=== PATIENT | female | born 1995 | race Caucasian/White ===

== ENCOUNTER 2021-09-01 11:37 | Emergency (ER) | payer BC, SELFPAY ==
--- OUTSIDE RECORDS SUMMARY | 2021-09-01 11:39 | XMS REPORT | Continuity of Care Document ---
:1995 Author Organization [facility] t Address [address] [place] [address] Care Team Providers Name Role Phone Néstor Attending Clinician Unavailable Jericho Attending Clinician Unavailable SAMANTHA SCHAEFER Attending Clinician Unavailable Jericho Admitting Clinician Unavailable Payers Payer Name Policy Type Policy Number Effective Date Expiration Date S ource Problems This patient has no known problems. Allergies, Adverse Reactions, Alerts Allergy Allergy Status Severity Reaction(s) Onset Inactive Treating Comm ents Source Name Type Date Date Clinician [place] DA Active [place] [facility] [place] vancom[facility] DA Active PR [facility] [place] Penic[place] DA Active [place] RASH [facility] [place] [facility] Active PR ITCHING [facility] in 02-22 [facility] [place] PENICILL DRUG Active Rash 2014-08 Univers IN [facility] 004 ity of 00:00: [place] [address] Medical Branch Medications This patient has no known medications. Procedures Procedure Date / Time Performed Performing Clinician Turner locke [id number] 2019-08-28 00:00:00 [facility] [id number] 2019-08-28 00:00:00 [facility]01 [facility] Encounters Start End Encounter Admission Attending Care Care Encounter Source Date/Time Date/Time Type Type Clinicians Facility Department ID 2021-08-28 Outpatient TALYA Palm [facility] [id number] [address] 14:23:35 [place] [id number] [facility] 2021-08-28 Outpatient Néstor STSEB [facility] [id number] 14:18:47 [place] [id number] [facility] 2019-08-28 Inpatient Echavarria, [facility] SHUBHAM [id number] [facility] 05:52:[id number] [place] [address] 2021-07-08 2021-07-08 ambulatory [facility] [id number] [facility] 2021-07-02 2021-07-02 ambulatory [facility] [id number] [facility] 2019-01-09 2019-01-09 Emergency X Miryam SCHAEFER [facility] ERT [id number] [facility] 17:15:39 20:16:00 [facility] Results Test Description Test Time Test Comments Results Result Comments Source HGB HCT 2019-08-29 05:25:00 Test Item Value Reference Range Interpretation Comme nts HEMOGLOBIN (test code = HGB) 9.7 g/dL 10.7-13.9 L HEMATOCRIT (test code = HCT) 30.4 % 32.1-42.1 L AG HEPATITIS B [id number] 09:37:00 Test Item Value Reference Range Interpretation Comments AG HEPATITIS B SURFACE (test code NONREACTIVE NONREACTIVE = HBSAG) IS CONSENT FORM SIGNED FOR HIV TESTING? YAB HEPATITIS C [id number] 09:37:00 Test Item Value Reference Range Interpretation Comments AB HEPATITIS C (test code = NONREACTIVE NONREACTIVE HCVAB) SIGNAL TO CUTOFF (test code = 0.16 <0.80 N CUTOFF) IS CONSENT FORM SIGNED FOR HIV TESTING? YAB [id number] 09:37:00 Test Item Value Reference Range Interpretation Comments AB TREPONEMA (test code = TREPAB) NONREACTIVE NONREACTIVE IS CONSENT FORM SIGNED FOR HIV TESTING? YAB HIV 1 [id number] 09:37:00 Test Item Value Reference Range Interpretation Comments AB HIV 1 2 (test NONREACTIVE NONREACTIVE Done by Jhoan Lazo code = [id number]) 4th Gen HIV Ag/Ab Combo Screen IS CONSENT FORM SIGNED FOR HIV TESTING? YCBC W/AUTO [id number] 07:22:00 Test Item Value Reference Range Interpretation Comments WHITE BLOOD CELL (test code = WBC) 12.3 K/mm3 6.6-12.1 H RED BLOOD CELL (test code = RBC) 3.92 M/mm3 3.45-5.01 N HEMOGLOBIN (test code = HGB) 11.2 g/dL 10.7-13.9 N HEMATOCRIT (test code = HCT) 34.3 % 32.1-42.1 N MEAN CELL VOLUME (test code = MCV) 88 fL 84.1-94.8 N MEAN CELL HGB (test code = MCH) 28.6 pg 27-35 N MEAN CELL HGB CONCETRATION (test 32.7 gm/dL 32.2-34.1 N code = MCHC) RED CELL DISTRIBUTION WIDTH (test 13.8 % 12.4-16.5 N code = RDW) PLATELET COUNT (test code = PLT) 291 K/mm3 133-385 N MEAN PLATELET VOLUME (test code = 11.0 fl 9.1-12.7 N MPV) NEUTROPHIL % (test code = NT%) 71.6 % 56.5-79.4 N LYMPHOCYTE % (test code = LY%) 19.8 % 14.3-34.3 N MONOCYTE % (test code = MO%) 6.7 % 5.1-10.4 N EOSINOPHIL % (test code = EO%) 0.9 % 0.1-3.0 N BASOPHIL % (test code = BA%) 0.3 % 0.1-1.0 N NEUTROPHIL # (test code = NT#) 8.8 K/mm3 LYMPHOCYTE # (test code = LY#) 2.4 K/mm3 MONOCYTE # (test code = MO#) 0.8 K/mm3 EOSINOPHIL # (test code = EO#) 0.11 K/mm3 BASOPHIL # (test code = BA#) 0.0 K/mm3 RBC MORPHOLOGY REQUIRED (test code NORMAL NORMAL = RBCM) PLATELET MORPHOLOGY REQUIRED (test NORMAL NORMAL code = PLTMR) URINALYSIS [id number] 15:26:00 Test Item Value Reference Range Interpretation Comments UA COLOR (test code = COLU) YELLOW YELLOW UA APPEARANCE (test code = CLEAR CLEAR APPU) UA GLUCOSE DIPSTICK (test code 3+ NEG A = DGLUU) UA BILIRUBIN DIPSTICK (test NEGATIVE NEG code = BILU) UA KETONE DIPSTICK (test code TRACE NEG A = KETU) UA SPECIFIC GRAVITY (test code 1.016 1.001-1.035 N = SGU) UA BLOOD DIPSTICK (test code = NEG NEG TEE) UA PH DIPSTICK (test code = 6.0 5-9 BECKY) UA PROTEIN DIPSTICK (test code NEGATIVE NEG = PROU) UA UROBILINIOGEN DIPSTICK NEGATIVE mg/dL NEG (test code = URO) UA NITRITE DIPSTICK (test code NEG NEG = DOT) UA LEUKOCYTE ESTERASE DIPSTICK NEG NEG (test code = LEUU) UA WBC (test code = WBCU) 0-2 #/hpf NONE SEEN UA EPITHELIAL CELLS (test code RARE #/HPF RARE-FEW = EPIU) UA BACTERIA (test code = BACU) RARE /HPF RARE-FEW UA MUCUS (test code = MUCU) RARE NONE SEEN - US PREG UT [id number] 09:50:00 Patient Name: LISA LENZ Unit No: [id number] EXAMS: CPT CODE: [id number] US PREG UT TRANSVAGINAL [address] [facility] [address], [place] [address] OBSTETRICAL ULTRASOUND REPORT Pat. Name: LISA LENZ Pat. No: [id number] Study Date: 07/05/2019 8:43am , Age: 01 1995, 22 Pregnancies: 3, Para 0 LMP: Unknown GA by 1st: 30w6d GA by US: 32w3d GA Selected: 30w6d (From Known E) YARA: 09/07/2019 Referring MD: Sandra Echavarria Marine Pipefitter: Luis Fernando Rausch RDMS CPT4: USPRUTTRVG Admitting MD: Sandra Echavarria Hist/Ind: PTL Weight OB F/U Scan #3 MEASURE MENTS AGE GROWTH EVALUATION Measurement GA Range Srce %for GA Ratios ----- ---- ------- BPD 8.2 cm 33w2d (63r6g-57h6l) Hadl BPD 87% FL/BPD 0.77 (0.71 - 0.87) HC 30.4 cm 33w2d (80a9b-76t4j) Hadl HC 87% FL/AC 0.23 (0.20 - 0.24) APD 8.2 cm APD HC/AC 1.10 (0.97 - 1.16) TAD 9.3 cm TAD CI 0.79 (0.70 - 0.86) AC 27.5 cm 31w4d (75d1z-68z6k) HadlAC 62% FL 6.3 cm 32w2d (83x9c-97w4v) Hadl FL 72% HL 5.2 cm 30w4d (29x5a-56x7d) Dharmesh HL 45%GA for sonogram 32w3d (78c5s-23m9q) Weight Estimate: based on (BPD,HC,AC,FL) Bishnu Shepard ght: 1931 gm (8532-6556) Hadlo : 4lbs, 4oz Normal: 1606 gm (0908-4706) Brenn Wt% 70% for 30.9 wks Cervical Length: 3.1 cm Heart Rate: 126 bpm Amniotic Fluid Index: 12.8cm (08.8-23.7) Q1: 3.5cm Q2: 2.5cm Q3: 2.3cm Q4: 4.5cm CLINICAL SUMMARY Type of Gestation: Botello Intrauterine in vertex presentation. size is appropriate for gestational age. growth: Consistent with normal growth motion and organs seen: somatic activity observed body and limb movements seen Regular cardiac rhythm observed Placental location: [facility] NAME: LISA LENZ Radiology Department PHYS: KENISHA.Reji Sandra Echavarria MD [address] : 1995 AGE: 23 SEX: F [place], [place] [address] LOC: [place].3046 A PHONE #: [phone] EXAM DATE: 07/05/2019 STATUS: ADM IN FAX #: [phone] RAD NO: Page 1 Signed Report (CONTINUED) Patient Name: LISA LENZ Unit No: [id number] EXAMS: CPT CODE: [id number] [facility] TRANSVAGINAL [address] <Continued> Posterior Placental maturity : Grade 2There is no evidence of placenta previa. Amniotic fluid volume is normal. Uterus and adnexa: No significant abnormality is seen. Thank you for allowing us to participate in the care of this patient. Melani Macedo M.D. Electronic Signature 07/05/2019 09:50am at 0950 Reported and signed by: Sabrina Macedo MD CC: Sandra Echavarria MD Technologist: Luis Fernando Rausch, KELLI Probe: [id number] Trnscrbd D/ (0950) Luis A Orig Print D/T: S: 07/06/2019 (1519) [facility] NAME: LISA LENZ Radiology Department PHYS: KENISHA. Víctor Sandra Echavarria MD [address] : 1995 AGE: 23 SEX: [place] [address] LOC: Ana Luisa6 A PHONE#: [phone] EXAM DATE: 07/05/2019 STATUS: ADM IN FAX #: [phone] RAD NO: Page 2 Signed Report Patient Name: LISA LENZ Unit No: [id number] EXAMS: CPT CODE: [id number] US PREG UT TRANSVAGINAL [address] <Continued> [facility] NAME: LISA LENZ Radiology Department PHYS: KENISHAELIU Renee Sandra Echavarria MD [address] : 1995 AGE: 23 SEX: F [place] [address] LOC: Eleni3046 A PHONE #: [phone] EXAM DATE: 07/05/2019 STATUS: ADM IN FAX #: [phone] RAD NO:Page 3 Signed Report- US FLW [id number] 09:50:00 Patient Name: LISA LENZ Unit No: [id number] EXAMS: [place]: [id number] [address] [facility] [address], [place] [address] OBSTETRICAL ULTRASOUND REPORT Pat. Name: LISA LENZ Pat. No: [id number] Study Date: 07/05/2019 8:43am , Age: 01 1995, 22 Pregnancies: 3, Para 0 LMP: Unknown GA by 1st: 30w6d GA by US: 32w3d GA Selected: 30w6d (From Known E) YARA: 09/07/2019 Referring MD: Sandra Echavarria Marine Pipefitter: Luis Fernando Rausch RDMS CPT4: USPREGFU Admitting MD: Sandra Echavarria Hist/Ind: PTL Weight OB F/U Scan #3 MEASUREMENTS AGE GROWTH EVALUATION Measurement GA Range Srce %for GA Ratios ----- ---- ------- BPD 8.2 cm 33w2d (54t9r-95p2m) Hadl BPD 87% FL/BPD 0.77 (0.71 - 0.87) HC 30.4 cm 33w2d (99z8c-36s3w) Hadl HC 87% FL/AC 0.23 (0.20 - 0.24) APD 8.2 cm APD HC/AC 1.10 (0.97 - 1.16) TAD 9.3 cm TAD CI 0.79 (0.70 - 0.86) AC 27.5 cm 31w4d (10o7z-83p1r) Hadl AC 62% FL 6.3 cm 32w2d (85p6z-61x7v) Hadl FL 72% HL 5.2 cm 30w4d (50p2p-15d5n) Dharmesh HL 45% GA for sonogram 32w3d (52r1t-78l6j) Weight Estimate: based on (BPD,HC,AC,FL) Hadlock Weight: 1931 gm (9824-8363) Hadlo : 4lbs, 4oz Normal: 1606 gm (1429-2989) Brenn Wt% 70% for 30.9 wks Cervical Length: 3.1 cm Heart Rate: 126 bpm Amniotic Fluid Index: 12.8cm(08.8-23.7) Q1: 3.5cm Q2: 2.5cm Q3: 2.3cm Q4: 4.5cm CLINICAL SUMMARY Type of Gestation: Botello Intrauterine in vertex presentation. size is appropriate for gestational age. growth: Consistent with normal growth motion and organs seen: somatic activity observed body and limb movements seen Regular cardiac rhythm observed Placental location: [facility] NAME: LISA LENZ Radiology Department PHYS: Carlos A Walker MD [address] : 1995 AGE: 23 SEX: [place] [address] LOC: Ana Luisa6 Trevor PHONE #: [phone] EXAM DATE: 07/05/2019 STATUS: ADM IN FAX #: [phone] RAD NO: Page 1 Signed Report(CONTINUED) Patient Name: LISA LENZ Unit No: [id number] EXAMS: CPT CODE: [id number] [place] [address] <Continued> Posterior Placental maturity : Grade 2 There is no evidence of placenta previa. Amniotic fluid volume is normal. Uterus and adnexa: No significant abnormality is seen. Thank you for allowing us to participate in the care of this patient. Melani Macedo M.D. Electronic Signature 07/05/2019 09:50am at 0950 Reported and signed by: Sabrina Macedo MD CC: Carlos A Rausch MD; Irais Echavarria MD Technologist: Luis Fernando Rausch RDMS Probe: Trnscrbd D/ (949) Luis A Valderrama Print D/T: S: 07/05/2019 (50) [facility] NAME: DELFINLISA Radiology Department PHYS: Carlos A Walker MD [address] : 1995 AGE:23 SEX: [place] [address] LOC: Eleni3046 A PHONE #: [phone] EXAM DATE: 07/05/2019 STATUS: ADM IN FAX #: [phone] RAD NO: Page 2 Signed Report PatientName: LISA LENZ Unit No: [id number] EXAMS: CPT CODE: [id number] [place] [address] <Continued> [facility] NAME: LISA LENZ Radiology Department PHYS: Carlos A Walker MD [address] : 1995 AGE: 23 SEX: F [place], [place] [address] LOC: Eleni3046 A PHONE #: [phone] EXAM DATE: 07/05/2019 STATUS: ADM IN FAX #: [phone] RAD NO: Page 3 Signed ReportCBC W/AUTO DIFF 2019-07-04 22:50:00 Test Item Value Reference Range Interpretation Comments WHITE BLOOD CELL (test code = WBC) 12.7 K/mm3 6.6-12.1 H RED BLOOD CELL (test code = RBC) 3.57 M/mm3 3.45-5.01 N HEMOGLOBIN (test code = HGB) 10.8 g/dL 10.7-13.9 N HEMATOCRIT (test code = HCT) 33.1 % 32.1-42.1 N MEAN CELL VOLUME (test code = MCV) 93 fL 84.1-94.8 N MEAN CELL HGB (test code = MCH) 30.3 pg 27-35 N MEAN CELL HGB CONCETRATION (test 32.6 gm/dL 32.2-34.1 N code = MCHC) RED CELL DISTRIBUTION WIDTH (test 12.8 % 12.4-16.5 N code = RDW) PLATELET COUNT (test code = PLT) 281 K/mm3 133-385 N IMMATURE PLATELET FRACTION (test 0.0 % 0.0-10.8 N code = IPF) MEAN PLATELET VOLUME (test code = 10.4 fl 9.1-12.7 N MPV) NEUTROPHIL % (test code = NT%) 70.2 % 56.5-79.4 N LYMPHOCYTE % (test code = LY%) 22.1 % 14.3-34.3 N MONOCYTE % (test code = MO%) 6.0 % 5.1-10.4 N EOSINOPHIL % (test code = EO%) 0.9 % 0.1-3.0 N BASOPHIL % (test code = BA%) 0.2 % 0.1-1.0 N NEUTROPHIL # (test code = NT#) 8.9 K/mm3 LYMPHOCYTE # (test code = LY#) 2.8 K/mm3 MONOCYTE # (test code = MO#) 0.8 K/mm3 EOSINOPHIL # (test code = EO#) 0.12 K/mm3 BASOPHIL # (test code = BA#) 0.0 K/mm3 RBC MORPHOLOGY REQUIRED (test code NORMAL NORMAL = RBCM) PLATELET MORPHOLOGY REQUIRED (test NORMAL NORMAL code = PLTMR) PARVO B19 DNA [id number] 08:55:00 Test Item Value Reference Range Interpretation Comments PARVO B19 DNA Negative Negative No Parvovirus B19 DNA PCR (test detected.This t est was developed code = and its perform ance [id number] characteristic sdetermined by R) [facility]. It has not been clearedor approved by the U.S. Food and D rug Administration. TheFDA has determined that such clearance or approval is notnecessary. This test is us ed for clinical purposes. Itsho uld not be regarded as inv estigational or research.Perfor med At: [facility] [id number] [place], [place] [id number] ra Marquita PENDLETON Ph:[phone] - US PREG UT [id number] 14:34:00 Patient Name: LISA LENZ Unit No: [id number] EXAMS: CPT CODE: [id number] US PREG UT TRANSVAGINAL [address] [facility] [address], [place] [address] OBSTETRICAL ULTRASOUND REPORT Pat. Name: LISA LENZ Pat. No: [id number] Study Date: 06/05/2019 1:27pm , Age: 01 1995, 22 Pregnancies: 3, Para 0 LMP: Unknown GA by 1st: 26w4d GA by US: 26w5d GA Selected: 26w4d (From First S) YARA: 09/07/2019 Referring MD: Sandra Echavarria Marine Pipefitter: Luis Fernando Rausch RDMS CPT4: USPRUTTRVG Admitting MD: Sandra Echavarria Hist/Ind: Cramping Vibrations Growth OB F/U Scan #2 MEASUREMENTS AGE GROWTH EVALUATION Measurement GA Range Srce %for GA Ratios ----- ---- ------- BPD 6.6 cm 26w5d (13i9a-33m3x) Hadl BPD 56% FL/BPD 0.78 (0.71 - 0.87) HC 24.9 cm 26w6d (65s1c-43j1j) Hadl HC 55% FL/AC 0.23 (0.20 - 0.24) APD 7.2 cm APD HC/AC 1.12 (1.00 - 1.19) TAD 6.9 cm TAD CI 0.73 (0.70 - 0.86) AC 22.2 eb01p7y (84p1n-78n5s) Hadl AC 48% FL 5.1 cm 27w1d (60h6k-44h1w) Hadl FL 62% HL 4.7 cm 27w5d (89d2h-06l2w) Dharmesh HL 68% GA for sonogram 26w5d (93s8c-69g1y) Weight Estimate: based on (BPD,HC,AC,FL) Hadlock Weight: 1004 gm (858-1151) Hadloc : 2lbs, 3oz Normal: 934 gm (621-1406) [place] Wt% 56% for 26.6 wks Cervical Length: 3.2 cm Heart Rate: 143 bpm Amniotic Fluid Index: 15.7cm (09.6-22.5) Q1: 4.4cm Q2: 5.1cm Q3: 2.4cm Q4: 3.8cm MATERNAL ANATOMY Ovaries LxHxW (cm) Right 3.6 x 1.8 x 3.2 Vol: 10.9cc CLINICAL SUMMARY Type of Gestation: Boetllo Intrauterine in vertex presentation. size is appropriate for gestational age. [facility] NAME: LISA LENZ Radiology Department PHYS: KWADWO Sandra Echavarria MD [address] : 1995 AGE: 23 SEX: [place] [address] LOC: ANTIONETTE PHONE #: [phone] EXAM DATE: 06/05/2019 STATUS: DEP ER FAX #: [phone] RAD NO: Page 1 Signed Report (CONTINUED) Patient Name: LISA LENZ Unit No: [id number] EXAMS: CPT CODE: [id number] US PREG UT TRANSVAGINAL [address] <Continued> motion and organs seen: heart motion seenFetal body and limb movements observed tone noted Placental location: Posterior Placental maturity : Grade 1 There is no evidence of placenta previa. Amniotic fluid volumeis normal. Uterus and adnexa: No significant abnormality is seen. Thank you for allowingus to participate in the care of this patient. Jose Reid M.D. Electronic Signature 06/05/2019 02:34pm at 1434 Reported and signed by: Jose Reid MD CC: Sandra Echavarria MD Technologist: Luis Fernando Rausch [facility] Probe: [id number] Trnscrbd D/ (1434) t.SDR.YOS Orig Print D/T: S: 06/06/2019(1432) [facility] NAME: LISA LENZ Radiology D epartment PHYS: KENISHA.01 - Sandra Echavarria MD [address] : 1995 AGE: 23 SEX: F [place] [address] LOC: EleniSHUBHAM PHONE #: [phone] EXAM DATE: 06/05/2019 STATUS: DEP ER FAX #: [phone] RAD NO: Page 2 Signed Report Patient Name: LISA LENZ Unit No: [id number] EXAMS: CPT CODE: [id number] US PREG UT TRANSVAGINAL [address] <Continued> [facility] NAME: LISA LENZ Radiology Department PHYS: KENISHA. - Sandra Echavarria MD [address] : 1995 AGE: 23 SEX: F [place] [address] LOC: F.SHUBHAM PHONE #: [phone] EXAM DATE: 06/05/2019 STATUS: DEP ER FAX #: [phone] RAD NO: Page 3 Signed Report- US FLW [id number] 14:34:00 Patient Name: LISA LENZ Unit No: [id number] EXAMS: CPT CODE: [id number] [place] [address] [facility] [address], [place] [address] OBSTETRICAL ULTRASOUND REPORT Pat. Name: LISA LENZ Pat. No: [id number] Study Date: 06/05/2019 1:27pm , Age: 01 1995, 22 Pregnancies: 3, Para 0 LMP: Unknown GA by 1st: 26w4d GA by US: 26w5d GA Selected: 26w4d (From First S) YARA: 09/07/2019 Referring MD: Sandra Echavarria M.D. Marine Pipefitter: Luis Fernando Rausch RDMS CPT4: USPREGFU Admitting MD: Sandra Echavarria M.D. Hist/Ind: Cramping Vibrations Growth OB F/U Scan #2 MEASUREMENTS AGE GROWTH EVALUATION Measurement GA Range Srce %for GA Ratios ----- ---- ------- BPD 6.6 cm 26w5d (11b8y-99r5q) Hadl BPD 56% FL/BPD 0.78 (0.71 - 0.87) HC 24.9 cm 26w6d (24w5d- 28w6d) Hadl HC 55% FL/AC 0.23 (0.20 - 0.24) APD 7.2 cm APDHC/AC 1.12 (1.00 - 1.19) TAD 6.9 cm TAD CI 0.73 (0.70 - 0.86) AC 22.2 cm 26w3d (68p7h-97o6w) Hadl AC 48% FL 5.1 cm 27w1d (90y6j-77q1q) Hadl FL 62% HL 4.7 cm 27w5d (04n7h-55m6c) Dharmesh HL 68% GA for sonogram 26w5d (37m8z-66r5z) Weight Estimate: based on (BPD,HC,AC,FL) Hadlock Weight: 1004 gm (858-1151) Hadloc : 2lbs, 3oz Normal: 934 gm (621-1406) Santa Wt% 56% for 26.6 wks Cervical Length: 3.2 cm Heart Rate: 143 bpm Amniotic Fluid Index: 15.7cm (09.6-22.5) Q1: 4.4cm Q2: 5.1cm Q3: 2.4cm Q4: 3.8cm ----- MATERNAL ANATOMY Ovaries LxHxW (cm) Right 3.6 x 1.8 x 3.2 Vol: 10.9cc CLINICAL SUMMARY Type of Gestation: Botello Intrauterine in vertex presentation. size is appropriate for gestational age. [facility] NAME: LISA LENZ Radiology Department PHYS: Kris Graves MD [address] :1995 AGE: 23 SEX: [place] [address] LOC: ANTIONETTE PHONE #: [phone] EXAM DATE: 06/05/2019 STATUS: REG ER FAX #: [phone] RAD NO: Page 1 Signed Report (CONTINUED) Patient Name: LISA LENZ Unit No: [id number] EXAMS: CPT CODE: [id number] [place] [address] <Continued> motion and organs seen: heart motion seen body and limb movements observed tone noted Placental location:Posterior Placental maturity : Grade 1 There is no evidence of placenta previa. Amniotic fluid volume is normal. Uterus and adnexa: No significant abnormality is seen. Thank you for allowing us to participate in the care of this patient. Jose Reid M.D. Electronic Signature 06/05/2019 02:34pm at 1434 Reported and signed by: Jose Reid MD CC: Sandra Echavarria MD; Kris Cole MD Technologist: Luis Fernando Rausch RDMS Probe: Trnscrbd D/ (0400) PatYOS Orig Print D/T: S: 06/05/2019 (8667) [facility] NAME: HASHLISA NICHOLE Radiology Department PHYS: Kris Graves MD [address] : 1995 AGE: 23 SEX: [place] [address] LOC: EleniSHUBHAM PHONE #: [phone] EXAM DATE: 06/05/2019 STATUS: REG ER FAX #: [phone] RAD NO: Page 2 Signed Report Patient Name: LISA LENZ Unit No: [id number] EXAMS: CPT CODE: [id number] [place] [address] <Continued> [facility] NAME: DELFINLISA Radiology Department PHYS: Kris Graves MD [address] : 1995 AGE: 23 SEX: [place] [address] LOC: EleniSHUBHAM P PILAR #: [phone] EXAM DATE: 06/05/2019 STATUS: REG ER FAX #: [phone] RAD NO: Page 3 Signed Report- US PREG UT [id number] 12:19:00 Patient Name: LISA LENZ Unit No: [id number] EXAMS: CPT CODE: [id number] US PREG UT TRANSVAGINAL [address] [facility] [address], [place] [address] OBSTETRICAL ULTRASOUND REPORT Pat. Name: LISA LENZ Pat. No: [id number] Study Date: 02/06/2019 11:03am , Age: 01 1995, 22 Pregnancies: 3, Para 0 LMP: Unknown GA by US: 09w6d GA Selected: 09w4d (From Known E) YARA: 09/07/2019 Referring MD: Marguerite Paul Marine Pipefitter: Luis Fernando Rausch RDMS CPT4: USPRUTTRVG Admitting MD: Sandra Echavarria Hist/Ind: Pelvic Pain OB Scan #1 MEASUREMENTS AGE GROWTH EVALUATION Measurement GA Range Srce %for GA Ratios ----- ---- ------- CRL 3.0 cm 09w6d (00o2p-66o3o) Hadl CRL 66% GA for sonogram 09w6d (32h1k-10k5g) based on (CRL) Avg Cervical Length: 3.6 cm Heart Rate: 187 bpm MATERNAL ANATOMY Ovaries LxHxW (cm) Right 3.9 x 2.3 x 2.6 Ovarian Cysts LxHxW (cm)R1: 2.2 x 1.6 x 1.4 Desc: Hemmorhagic CLC CLINICAL SUMMARY Type of Gestation: [place], intrauterine. motion and organs seen: heart motion seen SMALL 1.7X0.4X1.7CM SUBCHORIONIC BLEED. LEFT OVARY IS SURGICALLY ABSENT. [facility] to participate in the care of this patient. Aleksander Lemus M.D. Electronic Signature 02/06/2019 12:19pm at 1210 Reported and signed by: Aleksander Lemus MD [facility] NAME: LISA LENZ Radiology Department PHYS: Marguerite Feliciano [address] : 1995 AGE:23 SEX: [place], [place] [address] LOC: Oliev.2664 A PHONE #: [phone] EXAM DATE: 02/06/2019 STATUS: DIS IN FAX #: [phone] RAD NO: Page 1 Signed Report (CONTINUED) PatientName: LISA LENZ Unit No: [id number] EXAMS: CPT CODE: [id number] US PREG UT TRANSVAGINAL 75808 <Continued> CC: Carlos A Rausch MD; Marguerite Paul MD Technologist: Luis Fernando Rausch, KELLI Probe: [id number] Trnscrbd D/ (1219) PatAJ13 Orig Print D/T: S: 02/18/2019 (1008) [facility] NAME: LISA LENZ Radiology Department PHYS: [email or web address] - Marguerite Paul [address] : 1995 AGE: 23 SEX: [place], [place] [address] LOC: Olive.2664 A PHONE #: [phone] EXAM DATE: 02/06/2019 STATUS: DIS IN FAX #: [phone] RAD NO: Page 2 Signed Report Patient Name: LISA LENZ Unit No: [id number] EXAMS: CPT CODE: [id number] US PREG UT TRANSVAGINAL 91468 <Continued> [facility] NAME: LISA LENZ Radiology Department PHYS: Marguerite Feliciano [address] : 1995 AGE: 23 SEX: [place] [address] LOC: F.2664 A PHONE #: [phone] EXAM DATE: 02/06/2019 STATUS: DIS IN FAX #: [phone] RAD NO: Page 3 Signed Report- US PREG EVAL 1ST TRIMTR 2019-02-06 12:19:00 Patient Name: LISA LENZ Unit No: [id number] EXAMS: CPT CODE: [id number] US PREG EVAL 1ST TRIMTR [address] [facility] [address], [place] [address] OBSTETRICAL ULTRASOUND REPORT Pat. Name: LISA LENZ Pat. No: [id number] Study Date: 02/06/2019 11:03am , Age: 01 1995, 22 Pregnancies: 3, Para 0 LMP: Unknown GA by US: 09w6d GA Selected: 09w4d (From Known E) YARA: 09/07/2019 Referring MD: Sandra Echavarria M.D. Marine Pipefitter: Luis Fernando Rausch RDMS CPT4: [id number] Admitting MD: CARLOS A RAUSCH Hist/Ind: Pelvic Pain OB Scan #1 MEASUREMENTS AGE GROWTH EVALUATION Measurement GA Range Srce %for GA Ratios ----- ---- ------- CRL 3.0 cm 09w6d ([id number]) Had CRL 66% GA for sonogram 09w6d ([id number]) based on (CRL) Avg Cervical Length: 3.6 cm Heart Rate: 187 bpm MATERNAL ANATOMY --------- Ovaries LxHxW (cm) Right 3.9 x 2.3 x2.6 Ovarian Cysts LxHxW (cm) R1: 2.2 x 1.6 x 1.4 Desc: Hemmorhagic CLC CLINICAL SUMMARY Type of Gestation: Botello, intrauterine. motion and organs seen: heart motion seen SMALL 1.7X0.4X1.7CM SUBCHORIONIC BLEED. LEFT OVARY IS SURGICALLY ABSENT. Thank you for allowing us to participate in the care of this patient. Aleksander Lemus M.D. Electronic Signature 02/06/2019 12:19pm at 1213 Reported and signed by: Aleksander Lemus MD [facility] NAME: LISA LENZ Radiology Department PHYS: BENEDICTO.Reji - Marguerite Paul [address] : 1995 AGE: 23 SEX: F [place], [place] [address] LOC: Olive.2664 A PHONE #: [phone] EXAM DATE: 02/06/2019 STATUS: ADM IN FAX #: [phone] RAD NO: Page 1 Signed Report (CONTINUED) Patient Name: LISA LENZ Unit No: [id number] EXAMS: CPT CODE: [id number] US PREG EVAL 1ST TRIMTR [id number] <Continued> CC: Carlos A Rausch MD; Marguerite Paul MD Technologist: Luis Fernando Rausch RDMS Probe: Trnscrbd D/ ([id number]) [id number] Orig Print D/T: S: 02/06/2019 (1219) [facility] NAME: LISA LENZ Radiology Department PHYS: EMELYN - Prabhjot Paulondra [address] : 1995 AGE:23 SEX: F [place], [place] [address] LOC: [id number] A PHONE #: [phone] EXAM DATE: 02/06/2019 STATUS: ADM IN FAX #: [phone] RAD NO: Page 2 Signed Report PatientName: LISA LENZ Unit No: [id number] EXAMS: CPT CODE: [id number] US PREG EVAL 1ST TRIMTR [id number] <Continued> [facility] NAME: LISA LENZ Radiology Department PHYS: EMELYN - Marguerite Paul [address] : 1995 AGE: 23 SEX: F [place], [place] [address] LOC: Eleni2664 A PHONE #: [phone] EXAM DATE: 02/06/2019 STATUS: ADM IN FAX #: [phone] RAD NO: Page 3 Signed Report COMPREHENSIVE METABOLIC [id number] 10:44:00 Test Item Value Reference Range Interpretation Comments SODIUM (test code = NA) 136 mEq/L 135-145 N POTASSIUM (test code = K) 3.4 mEq/L 3.5-5.0 L CHLORIDE (test code = CL) 102 mEq/L 100-115 N CARBON DIOXIDE (test code = CO2) 24 mEq/L 22-31 N ANION GAP (test code = GAP) 13.80 10-20 N GLUCOSE (test code = GLU) 98 mg/dL 65-110 N BLOOD UREA NITROGEN (test code = 9 mg/dL 7-18 N BUN) GLOMERULAR FILTRATION RATE (test 123 ml/min >60 N code = GFR) CREATININE (test code = CREAT) 0.6 mg/dL 0.5-1.0 N TOTAL PROTEIN (test code = PROT) 7.2 gm/dL 6.3-8.2 N ALBUMIN (test code = ALB) 3.5 gm/dL 3.4-4.8 N CALCIUM (test code = CA) 8.4 mg/dL 8.4-10.2 N BILIRUBIN TOTAL (test code = BILT) 0.7 mg/dL 0.2-1.0 N SGOT/AST (test code = AST) 16 units/L 15-37 N SGPT/ALT (test code = ALT) 20 units/L 12-78 N ALKALINE PHOSPHATASE TOTAL (test 63 units/L 46-116 N code = ALKP) [id number] 10:44:00 Test Item Value Reference Range Interpretation Comments LIPASE (test code = LIP) 96 units/L 73-393 N CBC W/AUTO [id number] 10:32:00 Test Item Value Reference Range Interpretation Comments WHITE BLOOD CELL (test code = WBC) 9.6 K/mm3 6.6-12.1 N RED BLOOD CELL (test code = RBC) 4.32 M/mm3 3.45-5.01 N HEMOGLOBIN (test code = HGB) 13.2 g/dL 10.7-13.9 N HEMATOCRIT (test code = HCT) 38.2 % 32.1-42.1 N MEAN CELL VOLUME (test code = MCV) 88 fL 84.1-94.8 N MEAN CELL HGB (test code = MCH) 30.6 pg 27-35 N MEAN CELL HGB CONCETRATION (test 34.6 gm/dL 32.2-34.1 H code = MCHC) RED CELL DISTRIBUTION WIDTH (test 12.6 % 12.4-16.5 N code = RDW) PLATELET COUNT (test code = PLT) 297 K/mm3 133-385 N IMMATURE PLATELET FRACTION (test 0.0 % 0.0-10.8 N code = IPF) MEAN PLATELET VOLUME (test code = 10.5 fl 9.1-12.7 N MPV) NEUTROPHIL % (test code = NT%) 91.4 % 56.5-79.4 H LYMPHOCYTE % (test code = LY%) 4.2 % 14.3-34.3 L MONOCYTE % (test code = MO%) 4.1 % 5.1-10.4 L EOSINOPHIL % (test code = EO%) 0.0 % 0.1-3.0 L BASOPHIL % (test code = BA%) 0.1 % 0.1-1.0 N NEUTROPHIL # (test code = NT#) 8.8 K/mm3 LYMPHOCYTE # (test code = LY#) 0.4 K/mm3 MONOCYTE # (test code = MO#) 0.4 K/mm3 EOSINOPHIL # (test code = EO#) 0 K/mm3 BASOPHIL # (test code = BA#) 0.0 K/mm3 RBC MORPHOLOGY REQUIRED (test code NORMAL NORMAL = RBCM) PLATELET MORPHOLOGY REQUIRED (test NORMAL NORMAL code = PLTMR) UA RFLX MICR CULT IF [id number] 10:27:00 Test Item Value Reference Range Interpretation Comments UA COLOR (test code = COLU) YELLOW YELLOW UA APPEARANCE (test code = Slightly-Cloudy CLEAR APPU) UA GLUCOSE DIPSTICK (test NEGATIVE NEG code = DGLUU) UA BILIRUBIN DIPSTICK (test NEGATIVE NEG code = BILU) UA KETONE DIPSTICK (test code 2+ NEG A = KETU) UA SPECIFIC GRAVITY (test 1.033 1.001-1.035 N code = SGU) UA BLOOD DIPSTICK (test code NEG NEG = TEE) UA PH DIPSTICK (test code = 5.0 5-9 BECKY) UA PROTEIN DIPSTICK (test 1+ NEG A code = PROU) UA UROBILINIOGEN DIPSTICK NEGATIVE mg/dL NEG (test code = URO) UA NITRITE DIPSTICK (test NEG NEG code = DOT) UA LEUKOCYTE ESTERASE 2+ NEG A DIPSTICK (test code = LEUU) UA WBC (test code = WBCU) 6-10 #/hpf NONE SEEN A UA RBC (test code = RBCU) 3-5 #/hpf NONE SEEN A UA EPITHELIAL CELLS (test FEW #/HPF RARE-FEW code = EPIU) UA BACTERIA (test code = RARE /HPF RARE-FEW BACU) UA HYALINE CAST (test code = 0-2 #/hpf A HYALU) UA MUCUS (test code = MUCU) 2+ NONE SEEN Indication for culture: Suprapubic PainCBC W/AUTO [id number] 09:59:00 Test Item Value Reference Range Interpretation Comments WHITE BLOOD CELL (test code = WBC) 9.6 K/mm3 6.6-12.1 N RED BLOOD CELL (test code = RBC) 4.32 M/mm3 3.45-5.01 N HEMOGLOBIN (test code = HGB) 13.2 g/dL 10.7-13.9 N HEMATOCRIT (test code = HCT) 38.2 % 32.1-42.1 N MEAN CELL VOLUME (test code = MCV) 88 fL 84.1-94.8 N MEAN CELL HGB (test code = MCH) 30.6 pg 27-35 N MEAN CELL HGB CONCETRATION (test 34.6 gm/dL 32.2-34.1 H code = MCHC) RED CELL DISTRIBUTION WIDTH (test 12.6 % 12.4-16.5 N code = RDW) PLATELET COUNT (test code = PLT) 297 K/mm3 133-385 N IMMATURE PLATELET FRACTION (test 0.0 % 0.0-10.8 N code = IPF) MEAN PLATELET VOLUME (test code = 10.5 fl 9.1-12.7 N MPV) NEUTROPHIL % (test code = NT%) 91.4 % 56.5-79.4 H LYMPHOCYTE % (test code = LY%) 4.2 % 14.3-34.3 L MONOCYTE % (test code = MO%) 4.1 % 5.1-10.4 L EOSINOPHIL % (test code = EO%) 0.0 % 0.1-3.0 L BASOPHIL % (test code = BA%) 0.1 % 0.1-1.0 N NEUTROPHIL # (test code = NT#) 8.8 K/mm3 LYMPHOCYTE # (test code = LY#) 0.4 K/mm3 MONOCYTE # (test code = MO#) 0.4 K/mm3 EOSINOPHIL # (test code = EO#) 0 K/mm3 BASOPHIL # (test code = BA#) 0.0 K/mm3 RBC MORPHOLOGY REQUIRED (test code NORMAL NORMAL = RBCM) PLATELET MORPHOLOGY REQUIRED (test NORMAL code = PLTMR)
[2021-09-01 13:07] LABS: Urine Blood Trace-intact (Negative); Urine Glucose Negative (Negative); Urine Protein Negative (Negative); Urine Specific Gravity 1.025 (1.005-1.030)
--- NOTE | 2021-09-01 13:08 | ER ---
Nurse's Notes [facility] Name: Katt Ramos Age: 26 yrs Sex: Female : 1995 Arrival Date: 09/01/2021 Time: 11:39 Bed Waiting Private MD: Diagnosis: Presentation: 09/01 11:54 Chief complaint: Patient states: vaginal bleeding, vomiting and abd cramping that vg1 started yesterday. LMP late 06/2021. States she has taken multiple tests and they have been negative. Coronavirus screen: Vaccine status: Patient reports being unvaccinated. Ebola Screen: Patient negative for fever greater than or equal to 101.5 degrees Fahrenheit, and additional compatible Ebola Virus Disease symptoms Patient denies exposure to infectious person. Patient denies travel to an Ebola-affected area in the 21 days before illness onset. No symptoms or risks identified at this time. Initial Sepsis Screen: Does the patient meet any 2 criteria? No. Patient's initial sepsis screen is negative. Does the patient have a suspected source of infection? No. Patient's initial sepsis screen is negative. Risk Assessment: Do you want to hurt yourself or someone else? Patient reports no desire to harm self or others. Onset of symptoms was August 31, 2021. 11:54 Method Of Arrival: Ambulatory vg1 11:54 Acuity: [place] 3 vg1 Triage Assessment: 11:56 General: Appears in no apparent distress. comfortable, Behavior is calm, cooperative. vg1 Pain: Complains of pain in suprapubic area Pain currently is 8 out of 10 on a pain scale. : Reports pain vaginal bleeding that is. Historical: - Allergies: 11:56 PENICILLINS; vg1 - Home Meds: 11:56 None [Active]; vg1 - PMHx: 11:56 PCOS; vg1 - PSHx: 11:56 left ovary removed; vg1 - Immunization history:: Adult Immunizations up to date. - Social history:: Smoking status: Patient denies any tobacco usage or history of. Vital Signs: 11:54 BP 108 / 79; Pulse 74; Resp 18; Temp 97.2; Pulse Ox 100% ; Weight 65.77 kg; Height 5 vg1 ft. 9 in. (175.26 cm); Pain 8/10; 11:54 Body Mass Index 21.41 (65.77 kg, 175.26 cm) vg1 ED Course: 11:39 Patient arrived in ED. ds1 11:48 Carolyn Montilla FNP-C is [facility]. kb 11:48 Chago Byrd MD is Attending Physician. kb 11:56 Triage completed. vg1 11:56 Arm band placed on right wrist. vg1 Administered Medications: No medications were administered Outcome: 13:08 Patient left the ED. ll1 Signatures: Carolyn Montilla FNP-C FNP-Ckb Sanford, Demi ds1 Liat Handy, RN RN vg1 Edison Moreno RN RN ll1
--- NOTE | 2021-09-01 13:09 | EDPHYS ---
Physician Documentation [facility] Name: Katt Ramos Age: 26 yrs Sex: Female : 1995 Arrival Date: 09/01/2021 Time: 11:39 Bed Waiting Private MD: ED Physician Chago Byrd HPI: 09/01 13:03 This 26 yrs old Female presents to ER via Ambulatory with complaints of Vaginal kb Bleeding, + Preg <12wks. 13:03 The patient presents with vaginal bleeding that is moderate. Onset: The kb symptoms/episode began/occurred yesterday. Modifying factors: The symptoms are alleviated by nothing, the symptoms are aggravated by nothing. Associated signs and symptoms: Pertinent positives: cramping, vaginal bleeding. Severity of symptoms: At their worst the symptoms were moderate, in the emergency department the symptoms are unchanged. The patient has not experienced similar symptoms in the past. The patient has not recently seen a physician. Pt reports she started having abd cramping and vaginal bleeding yesterday. States she hasn't had a period since end of June, beginning of July. Has taken multiple tests that were negative. . Historical: - Allergies: 11:56 PENICILLINS; vg1 - Home Meds: 11:56 None [Active]; vg1 - PMHx: 11:56 PCOS; vg1 - PSHx: 11:56 left ovary removed; vg1 - Immunization history:: Adult Immunizations up to date. - Social history:: Smoking status: Patient denies any tobacco usage or history of. ROS: 13:03 Constitutional: Negative for fever, chills, and weight loss. kb 13:03 Abdomen/GI: Positive for abdominal cramps. 13:03 : Positive for vaginal bleeding. 13:03 All other systems are negative. Exam: 13:03 Constitutional: This is a well developed, well nourished patient who is awake, alert, kb and in no acute distress. Head/Face: Normocephalic, atraumatic. ENT: Moist Mucous membranes Respiratory: Respirations even and unlabored. No increased work of breathing. Talking in full sentences Skin: Warm, dry with normal turgor. Normal color. MS/ Extremity: Pulses equal, no cyanosis. Neurovascular intact. Full, normal range of motion. Neuro: Awake and alert, GCS 15, oriented to person, place, time, and situation. Moves all extremities. Normal gait. Psych: Awake, alert, with orientation to person, place and time. Behavior, mood, and affect are within normal limits. 13:03 Abdomen/GI: Inspection: abdomen appears normal, Bowel sounds: normal, in all quadrants, Palpation: soft, in all quadrants, mild abdominal tenderness, in the right lower quadrant and left lower quadrant. Vital Signs: 11:54 BP 108 / 79; Pulse 74; Resp 18; Temp 97.2; Pulse Ox 100% ; Weight 65.77 kg; Height 5 vg1 ft. 9 in. (175.26 cm); Pain 8/10; 11:54 Body Mass Index 21.41 (65.77 kg, 175.26 cm) vg1 MDM: 11:48 Patient medically screened. kb 13:02 Data reviewed: vital signs, nurses notes. Data interpreted: Pulse oximetry: on room air kb is 100 %. Interpretation: normal. 09/01 13:07 Order name: Urine Dipstick-Ancillary EDKY 09/01 13:08 Order name: Urine --Ancillary (enter results) eb 09/01 11:48 Order name: IV Saline Lock kb 09/01 11:48 Order name: Labs collected and sent kb 09/01 11:48 Order name: NPO kb 09/01 11:48 Order name: Urine Dipstick-Ancillary (obtain specimen); Complete Time: 13:06 kb 09/01 11:48 Order name: Urine Test (obtain specimen); Complete Time: 13:06 kb Administered Medications: No medications were administered Disposition: 13:26 Co-signature as Attending Physician, Chago Byrd MD I agree with the assessment and jose eduardo plan of care. Disposition Summary: 09/01/21 13:08 Eloped Disposition: after being seen by provider ll1 Reason: unknown ll Signatures: Dispatcher [employer] EDKY Carolyn Montilla, GUICHO MAXWELL-Chago Daniels MD MD cha Garcia, Victoria, RN RN vg1 Edison Moreno RN RN 1
[2021-09-01 13:13] VITALS: BP 108/79; TEMP 97.2; O2SAT 100
[2021-09-01 13:23] LABS: Urine Specific Gravity/Preg 1.025 (1.005-1.030)
== END 2021-09-01 13:08 | disposition left against medical advice (07) ==
LOC: ER 11:37
DX: N93.9 Abnormal uterine and vaginal bleeding, unspecified (principal); Z88.0 Allergy status to penicillin
CPT/HCPCS: 81003; 81025; 99281

== ENCOUNTER 2024-08-08 16:46 | Emergency (ER) | payer OTHER ==
--- NOTE | 2024-08-08 18:47 | RAD REPORT ---
EXAMINATION: US FIRST TRIMESTER TRANSVAGINAL WITH DOPPLER CLINICAL INDICATION: with vaginal bleeding TECHNIQUE: Real-time obstetrical ultrasonography of the maternal pelvis and first trimester was performed transvaginally. Color and spectral Doppler evaluation of the ovaries was performed. COMPARISON: No prior exam. FINDINGS: The uterus measures 9 x 6 x 6 cm. The uterus is retroverted. The endometrial stripe is inhomogeneous measuring 2.8 cm. Mildly increased vascularity is present. A gestational sac is not seen. Right ovary normal in size and echotexture The patient reports that the left ovary has been resected. No significant free fluid IMPRESSION: Thickened endometrium probably indicates an incomplete . Other considerations include an early IUP in which the gestational sac is not yet seen and even an ec topic . This should be correlated clinically and with serial beta-hCG levels. Follow-up endovaginal sonogram in one week recommended for reevaluation
[2024-08-08 21:00] LABS: Absolute Basophils 0.1 K/uL (0-0.5); Absolute Eosinophils 0.1 K/uL (0-0.5); Absolute Lymphocytes (CBC) 2.6 K/uL (0.7-4.9); Absolute Monocytes 0.5 K/uL (0.1-1.3); Absolute Neutrophil 5.9 K/uL (1.8-8.0); Basophils % 0.9 % (0-1.3); Eosinophils % 1.4 % (0-4.4); Hemoglobin 14.3 g/dL (12.0-15.0); Lymphocytes % 28.3 % (15.3-44.8); MCH 31.4 pg (27.0-35.0); MCHC 34.9 g/dL (32.0-36.0); MCV 90.1 fL (80-100); MPV 9.2 fL (7.6-11.3); Monocytes % 5.9 % (3.3-12.3); Neutrophils % 63.5 % (41.7-73.7); Platelets 354 thou/uL (152-406); RBC Red Blood Cell Count 4.54 M/uL (3.86-4.86); Red Cell Distribution Width 12.7 % (12.1-15.2)
[2024-08-08 21:02] LABS: Specific Gravity > 1.030 (1.005-1.030)
[2024-08-08 21:05] LABS: Specific Gravity > 1.030 (1.005-1.030); Urine Bacteria <20 /HPF (<20); Urine Bilirubin NEGATIVE (Negative); Urine Blood 3+ (OVER) (Negative); Urine Clarity Extremely Turbid (Clear); Urine Color Yellow (Yellow); Urine Crystals Unidentified Few /HPF (None Seen); Urine Culture Reflex Order REFLEXED; Urine Glucose NEGATIVE (Negative); Urine Ketones NEGATIVE (Negative); Urine Microscopic Reflex YN ORDER UMIC; Urine Mucus Slight /HPF (None Seen); Urine Nitrite NEGATIVE (Negative); Urine Protein TRACE (Negative); Urine RBC >50 /HPF (None Seen); Urine Urobilinogen Normal (Normal); Urine WBC Clump Rare /HPF (None Seen); Urine Yeast (Budding) Trace /HPF (None Seen); Urine pH 6.5 (5.0-7.0)
[2024-08-08 21:41] LABS: Anion Gap 7.5 mEq/L (5.0-15.0); Potassium 3.5 mEq/L (3.5-5.1)
--- NOTE | 2024-08-08 21:48 | ER ---
Nurse's Notes [facility] Name: Katt Ramos Age: 29 yrs Sex: Female : 1995 Arrival Date: 08/08/2024 Time: 16:46 Bed 6 Private MD: Diagnosis: Threatened Presentation: 08/08 17:30 Chief complaint: Lower abdominal cramping x 3 days, spotty vaginal bleeding x 2 days. hb Pt is approx 9 weeks , LMP 06/03/24, . Coronavirus screen: At this time, the client does not indicate any symptoms associated with coronavirus-19. Ebola Screen: No symptoms or risks identified at this time. Initial Sepsis Screen: Does the patient meet any 2 criteria? No. Patient's initial sepsis screen is negative. Does the patient have a suspected source of infection? No. Patient's initial sepsis screen is negative. Risk Assessment: Do you want to hurt yourself or someone else? Patient reports no desire to harm self or others. Onset of symptoms was August 05, 2024. 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 - Infectious Disease History:: Denies. - Social history:: Smoking status: Patient/guardian denies using tobacco. Screenin:51 [facility] ED Fall Risk Assessment (Adult) History of falling in the last 3 months, jj7 including since admission No falls in past 3 months (0 pts) Confusion or Disorientation No (0 pts) Intoxicated or Sedated No (0 pts) Impaired Gait No (0 pts) Mobility Assist Device Used No (0 pt) Altered Elimination No (0 pt) Score/Fall Risk Level 0 - 2 = Low Risk Oriented to surroundings, Maintained a safe environment, Educated pt \T\ family on fall prevention, incl call for assistance when getting out of bed, Assessed \T\ reinforced patient's understanding of fall precautions. Abuse screen: Denies threats or abuse. Nutritional screening: No deficits noted. Tuberculosis screening: No symptoms or risk factors identified. Assessment: 20:51 Reassessment: ASSUMED CARE OF PT. PT SITTING IN BED. NO PAIN OR DISTRESS AT THIS TIME. jj7 VS STABLE. General: Appears in no apparent distress. comfortable, Behavior is calm, cooperative, appropriate for age. Pain: Denies pain. : Reports vaginal bleeding that is light flow. 22:01 Reassessment: Patient appears in no apparent distress at this time. Patient and/or bm8 family updated on plan of care and expected duration. Pain level reassessed. Patient is alert, oriented x 3, equal unlabored respirations, skin warm/dry/pink. Patient denies pain at this time. Patient states feeling better. Vital Signs: 17:30 BP 120 / 86; Pulse 76; Resp 16; Temp 97.8; Pulse Ox 100% on R/A; Weight 72.57 kg; hb Height 5 ft. 9 in. ; Pain 4/10; 20:50 BP 98 / 64; Pulse 68; Resp 17; Pulse Ox 98% ; Pain 0/10; jj7 22:01 BP 101 / 63; Pulse 68; Resp 18; Temp 98; Pulse Ox 98% ; Pain 0/10; bm8 17:30 Body Mass Index 23.63 (72.57 kg, 175.26 cm) hb 17:30 Pain Scale: Adult hb 20:50 Pain Scale: Adult jj7 22:01 Pain Scale: Adult bm8 Hawa Coma Score: 22:01 Eye Response: spontaneous(4). Motor Response: obeys commands(6). Verbal Response: bm8 oriented(5). Total: 15. ED Course: 16:49 Patient arrived in ED. im 17:17 Kamaljit Ruiz FNP-C is PHCP. dr5 17:17 Ruby Gallo MD is Attending Physician. dr5 17:32 Triage completed. hb 17:32 Arm band placed on. hb 18:04 US Transvaginal Ob In Process Unspecified. EDMS 20:47 Sharona Somers RN is Primary Nurse. jj7 20:48 Patient has correct armband on for positive identification. Placed in gown. Bed in low bm8 position. Call light in reach. Side rails up X 1. Adult w/ patient. Client placed on continuous cardiac and pulse oximetry monitoring. NIBP monitoring applied. Pulse ox on. NIBP on. Door closed. Noise minimized. Pillow given. Verbal reassurance given. Head of bed elevated. 20:48 No provider procedures requiring assistance completed. Initial lab(s) drawn, by nc, edmund sent to lab. Urine collected: clean catch specimen, blood tinged, abo/rh drawn. Inserted saline lock: 20 gauge in right antecubital area, using aseptic technique. Blood collected. Flushed with 10 mL NS. Patient maintains SpO2 saturation greater than 95% on room air. 20:51 Provided Education on: USE OF CALL CHRISTIE. Warm blanket given. jj7 22:02 IV discontinued, intact, bleeding controlled, No redness/swelling at site. Pressure cm10 dressing applied. Administered Medications: No medications were administered Medication: 20:51 VIS not applicable for this client. jj7 Outcome: 21:48 Discharge ordered by . dr5 22:02 Discharged to home ambulatory, with family, [facility] 22:02 Condition: good 22:02 Discharge instructions given to patient, Instructed on discharge instructions, follow up and referral plans. medication usage, Demonstrated understanding of instructions, follow-up care, medications, Prescriptions given X 1, 22:02 Patient left the ED. bm8 Signatures: Dispatcher [employer] EDMS Jessica Rae RN Sharona Aguero RN RN jj7 Carolyne Mae Clarissa, RN RN cmMarcin Yoo RN RN bm8 Kamaljit Ruiz, INFORMATION SECURITY SYSTEMS INSTRUCTOR-C INFORMATION SECURITY SYSTEMS INSTRUCTOR-Cdr5
--- NOTE | 2024-08-08 21:48 | EDPHYS ---
Physician Documentation [facility] Name: Katt Ramos Age: 29 yrs Sex: Female : 1995 Arrival Date: 08/08/2024 Time: 16:46 Bed 6 Private MD: ED Physician Ruby Gallo HPI: 08/08 17:37 This 29 yrs old Female presents to ER via Ambulatory with complaints of dr5 Vaginal Bleeding, + Preg <12wks. 17:37 The patient presents to the emergency department with nausea and vomiting, vaginal dr5 bleeding, described as spotting, with no clots. The estimated gestational age is 9 weeks. The estimated gestational age is 4 weeks. . 17:40 Patient is a 29-year-old female with history of PCOS coming in with vaginal spotting dr5 that started this morning. Patient reports that she had a positive test completed a couple weeks ago at every clinic but has not had formal care or ultrasound completed yet. Patient reports that she has morning nausea and mild abdominal cramping. Patient reports not bleeding through more than 1 pad in 3 to 4 hours.. 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 - Infectious Disease History:: Denies. - Social history:: Smoking status: Patient/guardian denies using tobacco. ROS: 17:40 Constitutional: as per hpi dr5 Exam: 17:40 Constitutional: This is a well developed, well nourished patient who is awake, alert, dr5 and in no acute distress. Head/Face: Normocephalic, atraumatic. Eyes: Pupils equal round and reactive to light, extra-ocular motions intact. Lids and lashes normal. Conjunctiva and sclera are non-icteric and not injected. Cornea within normal limits. Periorbital areas with no swelling, redness, or edema. ENT: Nares patent. No nasal discharge, no septal abnormalities noted. Tympanic membranes are normal and external auditory canals are clear. Oropharynx with no redness, swelling, or masses, exudates, or evidence of obstruction, uvula midline. Mucous membranes moist. Chest/axilla: Normal chest wall appearance and motion. Nontender with no deformity. No lesions are appreciated. Cardiovascular: Regular rate and rhythm with a normal S1 and S2. Normal PMI, no JVD. No pulse deficits. Respiratory: Lungs have equal breath sounds bilaterally, clear to auscultation. No rales, rhonchi or wheezes noted. No increased work of breathing, no retractions or nasal flaring. Abdomen/GI: Soft, non-tender, non-distended Back: No spinal tenderness. No costovertebral tenderness. Full range of motion. Skin: Warm, dry with normal turgor. Normal color with no rashes, no lesions, and no evidence of cellulitis. Neuro: Awake and alert, GCS 15, oriented to person, place, time, and situation. Cranial nerves II-XII grossly intact. Motor strength 5/5 in all extremities. Sensory grossly intact. Cerebellar exam normal. Normal gait. Vital Signs: 17:30 BP 120 / 86; Pulse 76; Resp 16; Temp 97.8; Pulse Ox 100% on R/A; Weight 72.57 kg; hb Height 5 ft. 9 in. ; Pain 4/10; 20:50 BP 98 / 64; Pulse 68; Resp 17; Pulse Ox 98% ; Pain 0/10; jj7 22:01 BP 101 / 63; Pulse 68; Resp 18; Temp 98; Pulse Ox 98% ; Pain 0/10; bm8 17:30 Body Mass Index 23.63 (72.57 kg, 175.26 cm) hb 17:30 Pain Scale: Adult hb 20:50 Pain Scale: Adult jj7 22:01 Pain Scale: Adult bm8 [place] Coma Score: 22:01 Eye Response: spontaneous(4). Motor Response: obeys commands(6). Verbal Response: bm8 oriented(5). Total: 15. MDM: 17:32 Medical Screening Exam initiated dr5 08/09 01:13 Differential diagnosis: Early , Threatened . Data reviewed: vital dr5 signs, nurses notes. I considered the following discharge prescriptions or medication management in the emergency department Medications were administered in the Emergency Department. See MAR. Historians other than the Patient: Parent: Mother. Care significantly affected by the following chronic conditions: PCOS. Care significantly affected by the following Social Determinants of Health: Poor access to healthcare and/or lack of insurance, Poor access to transportation, Problems related to employment. Counseling: I had a detailed discussion with the patient and/or guardian regarding the historical points, exam findings, and any diagnostic results supporting the discharge/admit diagnosis, the presence of at least one elevated blood pressure reading (>120/80) during this emergency department visit, the need for outpatient follow up, for definitive care, a family practitioner, an OB/Gyne specialist, to return to the emergency department if symptoms worsen or persist or if there are any questions or concerns that arise at home, Return to ER in 48 hours for repeat HCG / US. ED course: Do not results for patient and discussed that she could be early , or threatened miscarriage or early ectopic . Patient does not have any bilateral or unilateral abdominal pain to suggest ectopic. Will have patient return in 48 hours for repeat hCG and ultrasound. Patient is agreeable to plan. Return to ER before that for any worsening conditions, vaginal pain, vaginal bleeding more than 1 pad an hour. All questions answered.. 08/08 17:17 Order name: Abo/rh Typing; Complete Time: 21:35 [facility] 08/08 17:17 Order name: Basic Metabolic Panel; Complete Time: 21:42 [facility] 08/08 17:17 Order name: CBC with Diff; Complete Time: 21:25 [facility] 08/08 17:17 Order name: Test, Urine; Complete Time: 21:25 [facility] 08/08 17:17 Order name: Quantitative Hcg; Complete Time: 21:42 dr5 08/08 17:17 Order name: Urinalysis w/ reflexes; Complete Time: 21:25 [facility] 08/08 21:09 Order name: Urine Culture EDLA 08/08 17:17 Order name: US Transvaginal Ob; Complete Time: 18:48 [facility] 08/08 17:17 Order name: IV Saline Lock; Complete Time: 20:48 [facility] 08/08 17:17 Order name: Labs collected and sent; Complete Time: 20:48 [facility] 08/08 17:17 Order name: NPO; Complete Time: 20:48 dr5 Administered Medications: No medications were administered Disposition: 08/08 20:35 Co-signature as Attending Physician, Ruby Gallo MD I reviewed the patient's care gb1 provided by the Advanced Practice Provider and agree with the diagnosis and treatment plan. Disposition Summary: 08/08/24 21:48 Discharge Ordered Notes: Location: Home dr5 Condition: Stable dr5 Diagnosis - Threatened dr5 Followup: dr5 - With: Emergency Department - When: 48 Hours - Reason: Recheck today's complaints, Repeat Beta-HCG (48 Hours) Followup: dr5 - With: Private Physician - When: As needed - Reason: Recheck today's complaints, Continuance of care, Re-evaluation by your physician Discharge Instructions: - Discharge Summary Sheet dr5 - Threatened Miscarriage dr5 - Vaginal Bleeding During , First Trimester dr5 Forms: - Medication Reconciliation Form dr5 - Patient Portal Instructions dr5 - Leadership Thank You Letter dr5 Prescriptions: - Cephalexin 500 mg Oral capsule - take 1 capsule ORAL route every 12 hours for 7 days; 14 capsule; Refills: 0, dr5 Product Selection Permitted - Fluconazole 150 mg Oral tablet - take 1 tablet ORAL route once daily for 1 day; 1 tablet; Refills: 0, Product dr5 Selection Permitted Signatures: Dispatcher [employer] EDMS Jessica Rae, ELIZABETH RN Ruby Onofre MD MD gb1 Kamaljit Ruiz, JD EDWARDS DEVELOPER-C JD EDWARDS DEVELOPER-Cdr5 Corrections: (The following items were deleted from the chart) 17:18 17:18 ABO/RH TYPING+BB.LAB.BRZ ordered. EDMS EDMS 17:18 17:18 BASIC METABOLIC PANEL+C.LAB.BRZ ordered. EDMS EDMS 17:18 17:18 CBC+H.LAB.BRZ ordered. EDMS EDMS 17:18 17:18 Test, Urine+UC.LAB.BRZ ordered. EDMS EDMS 17:18 17:18 QUANTITATIVE HCG+C.LAB.BRZ ordered. EDMS EDMS 17:18 17:18 Urinalysis+U.LAB.BRZ ordered. EDMS EDMS 17:18 17:18 Transvaginal Ob+US.RAD.BRZ ordered. EDMS EDMS
[2024-08-08 22:42] VITALS: O2SAT 98
[2024-08-08 22:44] VITALS: BP 101/63; TEMP 98
== END 2024-08-08 22:02 | disposition home or self-care (01) ==
LOC: ER 16:46
DX: O20.0 Threatened abortion (principal); E28.2 Polycystic ovarian syndrome; Z3A.01 Less than 8 weeks gestation of pregnancy; Z88.0 Allergy status to penicillin
CPT/HCPCS: 36415; 76817; 80048; 81001; 81025; 84702; 85025; 86900; 86901; 87086; 87088; 99284

== ENCOUNTER 2024-08-10 11:40 | Emergency (ER) | payer OTHER ==
--- NOTE | 2024-08-10 13:32 | ER ---
Nurse's Notes [facility] Name: Katt Ramos Age: 29 yrs Sex: Female : 1995 Arrival Date: 08/10/2024 Time: 11:40 Bed 13 Private MD: Diagnosis: Incomplete spontaneous without complication Presentation: 08/10 12:06 Chief complaint: Patient states: I was here Thursday for spotting and cramping, they said tm6 I had a UTI and possible miscarriage. The doctor who saw me wanted me to come back today to recheck my HCG levels, and also the bleeding and cramping has gotten a lot worse. Coronavirus screen: Client denies travel out of the [place] in the last 14 days. Ebola Screen: Patient negative for fever greater than or equal to 101.5 degrees Fahrenheit, and additional compatible Ebola Virus Disease symptoms Patient denies exposure to infectious person. Patient denies travel to an Ebola-affected area in the 21 days before illness onset. No symptoms or risks identified at this time. Initial Sepsis Screen: Does the patient meet any 2 criteria? No. Patient's initial sepsis screen is negative. Does the patient have a suspected source of infection? No. Patient's initial sepsis screen is negative. Risk Assessment: Do you want to hurt yourself or someone else? Patient reports no desire to harm self or others. Onset of symptoms was August 10, 2024. 12:06 Method Of Arrival: Ambulatory tm6 12:06 Acuity: GRANT 3 tm6 Triage Assessment: 12:06 General: Appears in no apparent distress. Behavior is calm, cooperative. Pain: tm6 Complains of pain in suprapubic area Pain currently is 6 out of 10 on a pain scale. Quality of pain is described as crampy. EENT: No signs and/or symptoms were reported regarding the EENT system. Neuro: Level of Consciousness is awake, alert, obeys commands, Oriented to person, place, time, situation. Cardiovascular: Patient's skin is warm and dry. Respiratory: Airway is patent Respiratory effort is even, unlabored, Respiratory pattern is regular, symmetrical. GI: No signs and/or symptoms were reported involving the gastrointestinal system. Abdomen is flat, non-distended. : Reports pain in suprapubic area Pain is 6 out of 10 on a pain scale. vaginal bleeding that is bright red, with clots, moderate flow. Derm: No signs and/or symptoms reported regarding the dermatologic system. Musculoskeletal: No signs and/or symptoms reported regarding the musculoskeletal system. RN AMBULATORY: 13:34 LMP 06/03/2024, unknown me1 Historical: - Allergies: 12:05 PENICILLINS; tm6 - PMHx: 12:05 PCOS; tm6 - PSHx: 12:05 Left ovary removed; tm6 - Immunization history:: Flu vaccine is not up to date. - Infectious Disease History:: Denies. - Social history:: Smoking status: Patient/guardian denies using tobacco, Stopped _ months ago 1. Screenin:35 [facility] ED Fall Risk Assessment (Adult) History of falling in the last 3 months, me1 including since admission No falls in past 3 months (0 pts) Confusion or Disorientation No (0 pts) Intoxicated or Sedated No (0 pts) Impaired Gait No (0 pts) Mobility Assist Device Used No (0 pt) Altered Elimination No (0 pt) Score/Fall Risk Level 0 - 2 = Low Risk Maintained a safe environment, Provided non-skid footwear, Hourly rounding (assess needs \T\ fall precautionary measures) done. Abuse screen: Denies threats or abuse. Nutritional screening: No deficits noted. Tuberculosis screening: No symptoms or risk factors identified. Assessment: 12:35 General: Appears comfortable, well groomed, well developed, well nourished, Behavior is me1 calm, cooperative, appropriate for age, Reports I was here Thursday for spotting and cramping, they said I had a UTI and possible miscarriage. The doctor who saw me wanted me to come back today to recheck my HCG levels, and also the bleeding and cramping has gotten a lot worse. Pain: Complains of pain in pelvis and suprapubic area Pain does not radiate. Pain currently is 3 out of 10 on a pain scale. Quality of pain is described as crampy, Pain began gradually, Is continuous. Neuro: Level of Consciousness is awake, alert, obeys commands, Oriented to person, place, time, situation, Appropriate for age. Cardiovascular: Patient's skin is warm and dry. Respiratory: Airway is patent Respiratory effort is even, unlabored, Respiratory pattern is regular, symmetrical. GI: No signs and/or symptoms were reported involving the gastrointestinal system. : Reports vaginal bleeding that is. EENT: No signs and/or symptoms were reported regarding the EENT system. Derm: Skin is intact, is healthy with good turgor, Skin is pink, warm \T\ dry. Musculoskeletal: No signs and/or symptoms reported regarding the musculoskeletal system. Vital Signs: 12:04 Temp 97.6(TE); Weight 72.57 kg; Height 5 ft. 9 in. ; Pain 6/10; tm6 12:05 BP 116 / 83; Pulse 81; Resp 16; Pulse Ox 100% on R/A; MAP 94 mmHg; tm6 13:33 BP 103 / 73; Pulse 66; Resp 15; Temp 98.4; Pulse Ox 99% ; me1 12:04 Body Mass Index 23.63 (72.57 kg, 175.26 cm) tm6 12:04 Pain Scale: Adult tm6 ED Course: 11:43 Patient arrived in ED. sj2 11:43 Coco Kunz MD is Attending Physician. sp3 12:06 Arm band placed on right wrist. tm6 12:07 Triage completed. tm6 12:31 Phoebe Membreno, ELIZABETH is Primary Nurse. me1 12:35 Patient has correct armband on for positive identification. Bed in low position. Call me1 light in reach. Side rails up X2. Provided Education on: POC. Verbalized understanding.. Client placed on continuous cardiac and pulse oximetry monitoring. NIBP monitoring applied. Pulse ox on. NIBP on. 12:35 No provider procedures requiring assistance completed. me1 12:39 HCG-Quantitative Sent. me1 12:39 Initial lab(s) drawn, by me, sent to lab. Inserted saline lock: 22 gauge in right me1 antecubital area, using aseptic technique. 13:37 IV discontinued, intact, bleeding controlled, No redness/swelling at site. Pressure me1 dressing applied. Administered Medications: No medications were administered Medication: 12:35 VIS not applicable for this client. me1 Outcome: 13:32 Discharge ordered by . sp3 13:37 Discharged to home ambulatory, me1 13:37 Condition: stable 13:37 Discharge instructions given to patient, Instructed on discharge instructions, follow up and referral plans. Demonstrated understanding of instructions, follow-up care, 13:38 Patient left the ED. me1 Signatures: Coco Kunz MD MD sp3 Phoebe Membreno RN RN me1 Nader Bose RN RN tm6 Nesha Espinoza sj2 Corrections: (The following items were deleted from the chart) 13:26 12:06 Chief complaint: Patient states: I was here Thursday for spotting and cramping, me1 they said I had a UTI and possible miscarriage. The doctor who saw me wanted me to come back today to recheck my HCG levels, and also the bleeding and cramping has gotten a lot worse. tm6
--- NOTE | 2024-08-10 13:33 | EDPHYS ---
Physician Documentation [facility] Name: Katt Ramos Age: 29 yrs Sex: Female : 1995 Arrival Date: 08/10/2024 Time: 11:40 Bed 13 Private MD: ED Physician Coco Kunz HPI: 08/10 12:45 This 29 yrs old Female presents to ER via Ambulatory with complaints of PREG LEVELS sp3 RECHECK. 12:45 29-year-old female at approximately 9 weeks A1 with 37,000 hCG level 2 sp3 days ago who was seen here for threatened now presents again for quantitative hCG recheck. Patient continues to have cramping and small amount of vaginal bleeding/clots. She denies any other symptoms including fever, headache, chest pain, shortness of breath, syncope, near syncope, or any other signs or symptoms on ROS at this time.. 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 - Infectious Disease History:: Denies. - Social history:: Smoking status: Patient/guardian denies using tobacco, Stopped _ months ago 1. ROS: 12:47 Constitutional: Negative for fever, chills, and weight loss, Eyes: Negative for injury, sp3 pain, redness, and discharge, Neck: Negative for injury, pain, and swelling, Cardiovascular: Negative for chest pain, palpitations, and edema, Respiratory: Negative for shortness of breath, cough, wheezing, and pleuritic chest pain, Abdomen/GI: Negative for abdominal pain, nausea, vomiting, diarrhea, and constipation, Back: Negative for injury and pain, MS/Extremity: Negative for injury and deformity, Skin: Negative for injury, rash, and discoloration, Neuro: Negative for headache, weakness, numbness, tingling, and seizure, Psych: Negative for depression, anxiety, suicide ideation, homicidal ideation, and hallucinations, Allergy/Immunology: Negative for hives, rash, and allergies, Endocrine: Negative for neck swelling, polydipsia, polyuria, polyphagia, and marked weight changes, 12:47 All other systems are negative, Exam: 12:48 Constitutional: This is a well developed, well nourished patient who is awake, alert, sp3 and in no acute distress. Head/Face: Normocephalic, atraumatic. Neck: Trachea midline, no thyromegaly or masses palpated, and no cervical lymphadenopathy. Supple, full range of motion without nuchal rigidity, or vertebral point tenderness. No Meningismus. Chest/axilla: Normal chest wall appearance and motion. Nontender with no deformity. No lesions are appreciated. Cardiovascular: Regular rate and rhythm with a normal S1 and S2. No gallops, murmurs, or rubs. Normal PMI, no JVD. No pulse deficits. Respiratory: Lungs have equal breath sounds bilaterally, clear to auscultation and percussion. No rales, rhonchi or wheezes noted. No increased work of breathing, no retractions or nasal flaring. Abdomen/GI: Soft, non-tender, with normal bowel sounds. No distension or tympany. No guarding or rebound. No evidence of tenderness throughout. Back: No spinal tenderness. No costovertebral tenderness. Full range of motion. Skin: Warm, dry with normal turgor. Normal color with no rashes, no lesions, and no evidence of cellulitis. MS/ Extremity: Pulses equal, no cyanosis. Neurovascular intact. Full, normal range of motion. Neuro: Awake and alert, GCS 15, oriented to person, place, time, and situation. Cranial nerves II-XII grossly intact. Motor strength 5/5 in all extremities. Sensory grossly intact. Cerebellar exam normal. Normal gait. Psych: Awake, alert, with orientation to person, place and time. Behavior, mood, and affect are within normal limits. 12:48 : Deferred, Vital Signs: 12:04 Temp 97.6(TE); Weight 72.57 kg; Height 5 ft. 9 in. ; Pain 6/10; tm6 12:05 BP 116 / 83; Pulse 81; Resp 16; Pulse Ox 100% on R/A; MAP 94 mmHg; tm6 13:33 BP 103 / 73; Pulse 66; Resp 15; Temp 98.4; Pulse Ox 99% ; me1 12:04 Body Mass Index 23.63 (72.57 kg, 175.26 cm) tm6 12:04 Pain Scale: Adult tm6 MDM: 12:08 Medical Screening Exam initiated sp3 12:48 Data reviewed: vital signs, nurses notes, old medical records. ED course: 29-year-old sp3 female with threatened and hCG recheck. Repeat hCG pending with prior 48-hour hCG at 37,000 performed 2 days ago. Disposition pending workup and patient course.. 13:30 ED course: hCG at 11,000. Patient is having a miscarriage. We will have her follow-up sp3 and I do not believe it is incomplete at this point as she is still cramping and bleeding.. 08/10 12:08 Order name: HCG-Quantitative; Complete Time: 13:30 sp3 Administered Medications: No medications were administered Disposition Summary: 08/10/24 13:32 Discharge Ordered Notes: Location: Home sp3 Condition: Stable sp3 Diagnosis - Incomplete spontaneous without complication sp3 Followup: sp3 - With: Private Physician - When: Upon discharge from the Emergency Department - Reason: Continuance of care Discharge Instructions: - Discharge Summary Sheet sp3 - Incomplete Miscarriage sp3 Forms: - Medication Reconciliation Form sp3 - Antibiotic Education sp3 - Prescription Opioid Use sp3 - Patient Portal Instructions sp3 - Leadership Thank You Letter sp3 Signatures: Dispatcher [employer] EDCoco Lockett MD MD sp3 Nader Bose RN RN tm6 Corrections: (The following items were deleted from the chart) 12:09 12:09 QUANTITATIVE HCG+C.LAB.BRZ ordered. CASSIE MATTHEWS
[2024-08-10 13:55] VITALS: BP 103/73; TEMP 98.4; O2SAT 99
== END 2024-08-10 13:38 | disposition home or self-care (01) ==
LOC: ER 11:40
DX: O03.4 Incomplete spontaneous abortion without complication (principal)
CPT/HCPCS: 36415; 84702; 99284